=== PATIENT | female | born 1995 | race Caucasian/White ===

== ENCOUNTER 2016-07-18 02:02 | Emergency (ER) | payer OTHER ==
--- NOTE | 2016-07-18 02:20 | ERPHSYRPT ---
- History of Present Illness Time Seen by Provider: 07/18/16 02:10 Source: patient Exam Limitations: no limitations Patient Subjective Stated Complaint: PT STS DONATED PLASMA ON WEDNESDAY, STS THAT "THEY BLEW MY VEIN". STS THAT SHE HAS BRUISING LT UPPER ARM THAT IS INCREASING IN SIZE. DENIES PAIN, DENIES ANY OTHER TRAUMA. DENIES RECENT BLEEDING FROM SITE. Triage Nursing Assessment: PT ALERT, ORIENTED, ANSWERS ALL QUESTIONS APPROPRIATELY. SKIN P/W/D, RESPS NON-LABORED. PT AMBULATORY WITHOUT DIFFICULTY STEADY GAIT NOTED. BRUISING WITH MULTIPLE RED/PURPLE COLORING AREAS NOTED TO LT UPPER ARM. PT HAS FULL ROM, PMS INTACT, + RADIAL PULSES, CAPILLARY REFILL LESS THAN 3 SECONDS. Physician History: 20 y/o female comes to the ER with complaints of bruising of the left arm after giving plasma on Wednesday. Pt admits that the bruising has gotten worst and has spread up the arm. Pt is not on any blood thinners, history of bleeding or family history of bleeding. Pt denies any pain, no fever, chills, or drainage. Occurred: days ago Method of Injury: other (drawing blood) Modifying Factors: Improves With: nothing Associated Symptoms: none Allergies/Adverse Reactions: Sulfa (Sulfonamide Antibiotics) Allergy (Intermediate, Verified 07/18/16 02:10) Swelling Hx Tetanus, Diphtheria Vaccination/Date Given: Yes Hx Influenza Vaccination/Date Given: No Hx Pneumococcal Vaccination/Date Given: No Immunizations Up to Date: Yes - Review of Systems Constitutional: No Fever, No Chills Eyes: No Symptoms Ears, Nose, & Throat: No Symptoms Respiratory: No Cough, No Dyspnea Cardiac: No Chest Pain, No Edema, No Syncope Abdominal/Gastrointestinal: No Abdominal Pain, No Nausea, No Vomiting, No Diarrhea Genitourinary Symptoms: No Dysuria, No Vaginal Bleeding Musculoskeletal: No Arthralgias, No Back Pain, No Neck Pain Skin: Other (ecchymoses), No Rash Neurological: No Dizziness, No Focal Weakness, No Sensory Changes Psychological: No Symptoms Endocrine: No Symptoms Hematologic/Lymphatic: Easy Bruising All Other Systems: Reviewed and Negative - Past Medical History Pertinent Past Medical History: Yes Respiratory History: Asthma - Past Surgical History Past Surgical History: No - Social History Smoking Status: Never smoker Exposure to second hand smoke: No Drug Use: none Patient Lives Alone: No - Female History Hx Last Menstrual Period: 06/16/17 - Nursing Vital Signs Nursing Vital Signs: Initial Vital Signs Temperature 98.5 F Temperature Source Oral Pulse Rate 87 Respiratory Rate 16 Blood Pressure 126/73 Pain Intensity 0 - Physical Exam General Appearance: alert Eyes, Ears, Nose, Throat Exam: moist mucous membranes Neck Exam: non-tender, supple Cardiovascular/Respiratory Exam: chest non-tender, normal breath sounds, regular rate/rhythm, no respiratory distress Abdominal Exam: non-tender, No guarding Back Exam: normal inspection, No vertebral tenderness Elbow/Forearm Exam: non-tender, normal ROM, ecchymosis Wrist Exam: normal inspection, non-tender Hand Exam: normal inspection, non-tender Neuro/Tendon Exam: normal sensation, normal motor functions Mental Status Exam: alert, oriented x 3, cooperative Skin Exam: normal color, warm, dry, ecchymosis SpO2: 99 Oxygen Delivery: Room Air Ordered Tests: Active Orders 24 hr Category Date Time Status CBCD [CBC W DIFF] Stat Lab 07/18/16 02:38 Completed PROTIME WITH INR Stat Lab 07/18/16 02:38 Completed PTT Stat Lab 07/18/16 02:38 Completed Lab/Rad Data: Laboratory Result Diagrams 07/18/16 02:38 Laboratory Results 07/18/16 07/18/16 Range/Units 02:38 02:38 WBC 10.4 (4.0-10.5) K/mm3 RBC 4.07 L (4.1-5.4) M/mm3 Hgb 11.1 L (12.0-16.0) gm/dl Hct 35.1 (35-47) % MCV 86.2 (78-100) fl MCH 27.2 (26-32) pg MCHC 31.6 L (32-36) g/dl RDW 13.2 (11.5-14.0) % Plt Count 263 (150-450) K/mm3 MPV 11.3 H (6-9.5) fl Gran % 56.3 (36.0-66.0) % Lymphocytes % 31.2 (24.0-44.0) % Monocytes % 8.6 (0.0-12.0) % Eosinophils % 3.6 (0.00-5.0) % Basophils % 0.3 (0.0-0.4) % Basophils # 0.03 (0-0.4) INR 1.08 (0.8-3.0) PTT 31.0 (25.3-37.0) SECONDS - Progress Progress: unchanged Progress Note: 07/18/16 03:26 The INR and PTT are within normal limits as well as the platelet count. Pt will be treated with 7 days of keflex for phlebitis - Departure Time of Disposition: 03:27 Departure Disposition: Home Clinical Impression: Phlebitis Condition: Stable Critical Care Time: No Instructions: Phlebitis Additional Instructions: Return to the ER if you should have worsening bruising, warmth, drainage, fever or chills. Prescriptions: Cephalexin Mh 500 mg [Keflex 500 mg] 500 mg PO BID #13 capsule
[2016-07-18 02:46] LABS: BASOPHIL % 0.3 % (0.0-0.4); Eosinophil % 3.6 % (0.00-5.0); Granulocytes % 56.3 % (36.0-66.0); Lymphocytes % 31.2 % (24.0-44.0); Mean Cell Volume 86.2 fl (78-100); Mean Platelet Volume 11.3 fl (6-9.5); Monocytes % 8.6 % (0.0-12.0); Platelet Count 263 K/mm3 (150-450); Red Blood Count 4.07 M/mm3 (4.1-5.4); Red Cell Distribution Width 13.2 % (11.5-14.0); White Blood Count 10.4 K/mm3 (4.0-10.5)
[2016-07-18 02:48] LABS: Mean Corpuscular Hemoglobin 27.2 pg (26-32)
[2016-07-18 03:11] LABS: INR 1.08 (0.8-3.0); PROTIME 12.1 SECONDS (9.95-12.35)
[2016-07-18] MEDS ORDERED: KEFLEX 500 MG PO ONE (03:26)
[2016-07-18] MEDS ORDERED: KEFLEX 500 MG ONE (03:31)
[2016-07-18 03:53] VITALS: BP 112/58; PULSE 69; O2SAT 98
== END 2016-07-18 03:51 | disposition home or self-care (01) ==
LOC: ED 02:02
DX: T81.72XA Complication of vein following a procedure, not elsewhere classified, initial encounter (principal); I80.8 Phlebitis and thrombophlebitis of other sites
CPT/HCPCS: 36415; 85025; 85610; 85730; 99282

== ENCOUNTER 2016-11-30 15:07 | Emergency (ER) | payer SELFPAY ==
--- NOTE | 2016-11-30 15:26 | ERPHSYRPT ---
- History of Present Illness Time Seen by Provider: 11/30/16 15:20 Source: patient, other Exam Limitations: no limitations Patient Subjective Stated Complaint: here for vaginal bleeding for a month, going through 3 pads a day bright red bleeding, some cramping at times none now Triage Nursing Assessment: pt alert,resp easy, sin w/d pink walked in Physician History: The patient is a 21-year-old female who has never been and is accompanied by her boyfriend complaining of vaginal bleeding for a month. Her periods have been normal and monthly. She bleeds heavily during her periods. Her. She is last about 7 days but this one has continued for about 3 more weeks. She goes through about 3 pads a day. She's had some cramping but none at this time. She was not concerned but her boyfriend states I want to know what's wrong. She denies having intercourse for the past month. More than 2 years ago she discontinued various control methods such as the pill and Depo shots. They practice unprotected intercourse, even though they state they are not wanting to get . The past medical history is unremarkable. Timing/Duration: week(s) (4) Activites at Onset: none Quality: cramping, other (vaginal bleeding) Pain Radiation: none Severity of Pain-Max: mild Severity of Pain-Current: none Prior abdominal problems: none Sexual intercourse history: less than 2 months ago, single partner, unprotected intercourse Modifying Factors: Improves With: nothing Associated Symptoms: vaginal discharge Allergies/Adverse Reactions: Sulfa (Sulfonamide Antibiotics) Allergy (Intermediate, Verified 11/30/16 15:17) Swelling Home Medications: No Reportable Medications [No Reported Medications] 11/30/16 [History] Hx Tetanus, Diphtheria Vaccination/Date Given: Yes Hx Influenza Vaccination/Date Given: No Hx Pneumococcal Vaccination/Date Given: No - Review of Systems Constitutional: No Fever, No Chills Eyes: No Symptoms Ears, Nose, & Throat: No Symptoms Respiratory: No Cough, No Dyspnea Cardiac: No Chest Pain, No Edema, No Syncope Abdominal/Gastrointestinal: No Abdominal Pain, No Nausea, No Vomiting, No Diarrhea Genitourinary Symptoms: Vaginal Bleeding Musculoskeletal: No Back Pain, No Neck Pain Skin: No Rash Neurological: No Dizziness, No Focal Weakness, No Sensory Changes Psychological: No Symptoms Endocrine: No Symptoms Hematologic/Lymphatic: No Symptoms Immunological/Allergic: No Symptoms All Other Systems: Reviewed and Negative - Past Medical History Pertinent Past Medical History: No Respiratory History: Asthma - Past Surgical History Past Surgical History: No - Social History Smoking Status: Never smoker Exposure to second hand smoke: No Drug Use: none Patient Lives Alone: No - Female History Hx Last Menstrual Period: october 07 - Nursing Vital Signs Nursing Vital Signs: Initial Vital Signs Temperature 97.4 F Temperature Source Oral Pulse Rate 100 Respiratory Rate 16 Blood Pressure [Left Arm] 136/67 - Physical Exam General Appearance: no apparent distress, alert Eye Exam: PERRL/EOMI, eyes nml inspection Ears, Nose, Throat Exam: normal ENT inspection, TMs normal, pharynx normal, moist mucous membranes Neck Exam: normal inspection, non-tender, supple, full range of motion Respiratory Exam: normal breath sounds, lungs clear, No respiratory distress Cardiovascular Exam: regular rate/rhythm, normal heart sounds, normal peripheral pulses Gastrointestinal/Abdomen Exam: soft, No tenderness, No mass Pelvic Exam: not done Rectal Exam: not done Back Exam: normal inspection, normal range of motion, No CVA tenderness, No vertebral tenderness Extremity Exam: normal inspection Neurologic Exam: alert, oriented x 3, cooperative, caustic purification operator II-XII nml as tested, normal mood/affect, sensation nml, No motor deficits Skin Exam: normal color, warm, dry SpO2 Interpretation: normal SpO2: 100 Oxygen Delivery: Room Air Ordered Tests: Active Orders 24 hr Category Date Time Status BMP Stat Lab 11/30/16 15:32 Completed CBC W DIFF Stat Lab 11/30/16 15:45 Completed HCG QUALITATIVE,SERUM Stat Lab 11/30/16 15:45 Completed UA W/ MICROSCOPIC Stat Lab 11/30/16 15:31 Completed Lab/Rad Data: Laboratory Result [facility] 11/30/16 15:45 11/30/16 15:32 Laboratory Results 11/30/16 11/30/16 11/30/16 Range/Units 15:45 15:45 15:32 WBC 6.9 (4.0-10.5) K/mm3 RBC 4.10 (4.1-5.4) M/mm3 Hgb 11.6 L (12.0-16.0) gm/dl Hct 36.8 (35-47) % MCV 89.8 (78-100) fl MCH 28.2 (26-32) pg MCHC 31.5 L (32-36) g/dl RDW 13.3 (11.5-14.0) % Plt Count 272 (150-450) K/mm3 MPV 11.1 H (6-9.5) fl Gran % 54.2 (36.0-66.0) % Lymphocytes % 34.2 (24.0-44.0) % Monocytes % 9.0 (0.0-12.0) % Eosinophils % 2.2 (0.00-5.0) % Basophils % 0.4 (0.0-0.4) % Basophils # 0.03 (0-0.4) Sodium 140 (136-145) mEq/L Potassium 4.1 (3.5-5.1) mEq/L Chloride 105 (98-107) mEq/L Carbon Dioxide 28.7 (21-32) mEq/L Anion Gap 10.6 (5-15) MEQ/L BUN 8 L (9-20) mg/dL Creatinine 0.84 (0.55-1.30) mg/dl Estimated GFR > 60 ML/MIN Glucose 102 (70-110) MG/DL Calcium 9.1 (8.5-10.1) mg/dL Serum , Qual NEGATIVE (Negative) Ur Collection Type Urine Color (YELLOW) Urine Appearance (CLEAR) Urine pH (5-6) Ur Specific Faulkner (1.005-1.025) Urine Protein (Negative) Urine Glucose (UA) (NEGATIVE) mg/dL Urine Ketones (NEGATIVE) Urine Nitrite (NEGATIVE) Urine Bilirubin (NEGATIVE) Urine Urobilinogen (0-1) mg/dL Urine WBC (Auto) (NEGATIVE) Urine RBC (Auto) (0-5) Grant/ul Urine Microscopic RBC (0-2) /HPF Urine Microscopic WBC (0-5) /HPF Ur Epithelial Cells (FEW) /HPF Amorphous Crystals (NEGATIVE) /HPF Urine Bacteria (NEGATIVE) /HPF Specimen Received 11/30/16 Range/Units 15:31 WBC (4.0-10.5) K/mm3 RBC (4.1-5.4) M/mm3 Hgb (12.0-16.0) gm/dl Hct (35-47) % MCV (78-100) fl MCH (26-32) pg MCHC (32-36) g/dl RDW (11.5-14.0) % Plt Count (150-450) K/mm3 MPV (6-9.5) fl Gran % (36.0-66.0) % Lymphocytes % (24.0-44.0) % Monocytes % (0.0-12.0) % Eosinophils % (0.00-5.0) % Basophils % (0.0-0.4) % Basophils # (0-0.4) Sodium (136-145) mEq/L Potassium (3.5-5.1) mEq/L Chloride (98-107) mEq/L Carbon Dioxide (21-32) mEq/L Anion Gap (5-15) MEQ/L BUN (9-20) mg/dL Creatinine (0.55-1.30) mg/dl Estimated GFR ML/MIN Glucose (70-110) MG/DL Calcium (8.5-10.1) mg/dL Serum , Qual (Negative) Ur Collection Type VOID Urine Color LT.YELLOW (YELLOW) Urine Appearance CLEAR (CLEAR) Urine pH 8.5 (5-6) Ur Specific Fa[place]ner 1.020 (1.005-1.025) Urine Protein NEGATIVE (Negative) Urine Glucose (UA) NEGATIVE (NEGATIVE) mg/dL Urine Ketones NEGATIVE (NEGATIVE) Urine Nitrite NEGATIVE (NEGATIVE) Urine Bilirubin NEGATIVE (NEGATIVE) Urine Urobilinogen 0.2 (0-1) mg/dL Urine WBC (Auto) NEGATIVE (NEGATIVE) Urine RBC (Auto) SMALL (0-5) Grant/ul Urine Microscopic RBC 2-5 (0-2) /HPF Urine Microscopic WBC 0-2 (0-5) /HPF Ur Epithelial Cells RARE (FEW) /HPF Amorphous Crystals FEW (NEGATIVE) /HPF Urine Bacteria RARE (NEGATIVE) /HPF Specimen Received 11/30/16 1500 - Departure Time of Disposition: 16:39 Departure Disposition: Home Clinical Impression: Menorrhagia, Mild anemia Condition: Stable Critical Care Time: No Additional Instructions: You have vaginal bleeding. Her laboratory values were within normal limits except he was slightly anemic. Follow up tomorrow with your primary care doctor for further evaluation.
[2016-11-30 15:51] LABS: BASOPHIL % 0.4 % (0.0-0.4); Eosinophil % 2.2 % (0.00-5.0); Granulocytes % 54.2 % (36.0-66.0); Lymphocytes % 34.2 % (24.0-44.0); Mean Cell Volume 89.8 fl (78-100); Mean Platelet Volume 11.1 fl (6-9.5); Platelet Count 272 K/mm3 (150-450); Red Cell Distribution Width 13.3 % (11.5-14.0); White Blood Count 6.9 K/mm3 (4.0-10.5)
[2016-11-30 16:07] LABS: ANION GAP 10.6 MEQ/L (5-15); BLOOD UREA NITROGEN 8 mg/dL (9-20); CHLORIDE 105 mEq/L (98-107); Carbon Dioxide 28.7 mEq/L (21-32); Glucose 102 MG/DL (70-110); Potassium 4.1 mEq/L (3.5-5.1); SODIUM 140 mEq/L (136-145)
[2016-11-30 16:16] LABS: Mean Corpuscular Hemoglobin 28.2 pg (26-32)
[2016-11-30 16:28] LABS: COMPLETE URINE MICROSCOPIC? YES; Collection Type VOID; Ph 8.5 (5-6)
[2016-11-30 16:32] LABS: ADD URINE CULTURE? NO (NO); Bacteria RARE /HPF (NEGATIVE); Epithelial Cells RARE /HPF (FEW); WBC 0-2 /HPF (0-5)
[2016-11-30 16:45] VITALS: BP 122/60; PULSE 89; O2SAT 99
== END 2016-11-30 16:44 | disposition home or self-care (01) ==
LOC: ED 15:07
DX: N92.0 Excessive and frequent menstruation with regular cycle (principal); D64.9 Anemia, unspecified
CPT/HCPCS: 36415; 80048; 81000; 84703; 85025; 86850; 86900; 86901; 99283